=== PATIENT | female | born 1970 | race Asian ===

== ENCOUNTER 2022-12-24 14:20 | Emergency (ER) | payer SELFPAY ==
[~2022-12-24] VITALS: Ht 167.6 cm; Wt 75.0 kg
[2022-12-24] MEDS ORDERED: OLANZAPINE 10 MG/VIAL IM ONE (15:45)
[2022-12-24] MEDS ORDERED: OLANZAPINE 10 MG/VIAL IM NR (16:15)
[2022-12-24 17:29] LABS: BASOPHILS % 0.7 % (0.0-2.0); EOSINOPHILS % 1.3 % (0.0-5.0); HEMATOCRIT. 42.2 % (36.0-48.0); HEMOGLOBIN. 14.2 g/dL (12.0-16.0); LYMPHOCYTES % 41.6 % (20.0-50.0); MEAN CORPUSCULAR HEMOGLOBIN 31.3 pg (28.0-32.0); MEAN CORPUSCULAR VOLUME 92.8 fL (81.0-99.0); MEAN PLATELET VOLUME 7.6 fl (7.4-10.4); MONOCYTES % 9.5 % (2.0-8.0); NEUTROPHILS % 46.9 % (40.0-76.0); PLATELET 261 x1000/uL (130-400); RED BLOOD CELL COUNT 4.54 mill/uL (4.2-5.4); RED CELL DISTRIBUTION WIDTH 13.1 % (11.6-14.6)
[2022-12-24 17:30] LABS: CHLORIDE 107 mEq/L (98-107)
[2022-12-24 17:36] LABS: ETHANOL BLOOD < 10 mg/dL
[2022-12-24 17:44] LABS: CLARITY URINE CLEAR (CLEAR); COLOR URINE YELLOW (YELLOW); KETONES URINE NEGATIVE (NEGATIVE); LEUKOCYTE ESTERASE URINE 2+ (NEGATIVE); NITRITE URINE NEGATIVE (NEGATIVE); OCCULT BLOOD URINE NEGATIVE (NEGATIVE); PROTEIN URINE NEGATIVE (NEGATIVE); UROBILINOGEN URINE 0.2 E.U./dL (0.2-1.0)
[2022-12-24 17:46] LABS: CREATINE KINASE 117 IU/L (26-192)
[2022-12-24 17:53] LABS: HCG SCREEN NEGATIVE
[2022-12-24 17:56] LABS: *AMPHETAMINES SCREEN URINE PRESUMTIVE POSITIVE (NEGATIVE); *BARBITURATES SCREEN URINE NEGATIVE (NEGATIVE); *BENZODIAZEPINES SCREEN URINE NEGATIVE (NEGATIVE); *COCAINE SCREEN URINE NEGATIVE (NEGATIVE); CANNABINOID URINE SCREEN NEGATIVE (NEGATIVE); METHADONE URINE SCREEN NEGATIVE (NEGATIVE); OPIATES URINE SCREEN NEGATIVE (NEGATIVE); PHENCYCLIDINE URINE SCREEN NEGATIVE (NEGATIVE)
[2022-12-25 07:06] VITALS: BP 114/79
== END 2022-12-25 07:07 | disposition home or self-care (01) ==
LOC: ER 14:28
DX: F15.10 Other stimulant abuse, uncomplicated (principal); F91.8 Other conduct disorders; Z20.822 Contact with and (suspected) exposure to COVID-19
CPT/HCPCS: 36415; 70450; 71045; 80053; 80305; 80307; 80320; 80329; 81003; 82550; 84703; 85025; 87426; 96372; 99285; C9803; J3490; G0480